=== PATIENT | female | born 1995 | race Caucasian/White ===

== ENCOUNTER → 2019-09-20 | Outpatient (CLI) | payer OTHER | LOC: OD 16:56 | PROVIDERS: ATTEND Obstetrics & Gynecology | DX: O20.0 Threatened abortion (principal); Z3A.00 Weeks of gestation of pregnancy not specified | CPT/HCPCS: 36415; 86900; 86901 ==

== ENCOUNTER 2020-04-11 13:35 | Outpatient (CLI) | payer OTHER ==
--- NOTE | 2020-04-11 14:40 | Non Stress Test Report ---
Non Stress Test Datetime Report Generated by CPN: 04/11/2020 14:40 DEMOGRAPHIC EGA NST: 35.3 VITAL SIGNS Temperature - NST: 97.3 Pulse - NST: 104 RESP - NST: 18 NBPSYS NST: 123 NBPDIA NST: 71 MONITORING Monitor Explained: Monitor Explained; Test Explained; Patient Verbalized Understanding Time on Monitor: 04/11/2020 13:49 Time off Monitor: 04/11/2020 14:31 NST Duration: 42 NST INTERVENTIONS NST Interventions: PO Hydration; Reposition Patient Physician Notified NST: Dr Yang BABY A: [id number] BABY A Movement : Present Contraction Frequency : 6-10 FHR Baseline : 150 Accelerations : 15X15 Decelerations : None Variability : Moderate 6-25bpm NST Review: Meets Criteria for Reactive NST NST Review and Verified By : Sherita PAULA/ Cass Tapia RN NST Results: Reactive NST REPORT Report Trigger: Send Report
== END 2020-04-11 14:36 | disposition home or self-care (01) ==
LOC: LC 13:35
PROVIDERS: ATTEND Obstetrics & Gynecology Gynecology
DX: O36.8130 Decreased fetal movements, third trimester, not applicable or unspecified (principal); Z3A.35 35 weeks gestation of pregnancy

== ENCOUNTER 2020-04-30 22:59 | Outpatient (CLI) | payer OTHER ==
[2020-04-30 23:39] LABS: APPEARANCE,URINE CLOUDY; BILIRUBIN,URINE NEGATIVE (NEGATIVE); COLOR,URINE YELLOW; GLUCOSE, URINE NEGATIVE (NEGATIVE); KETONES,URINE NEGATIVE (NEGATIVE); LEUKOCYTE ESTERASE,URINE LARGE (NEGATIVE); NITRITE,URINE NEGATIVE (NEGATIVE); PROTEIN,URINE NEGATIVE (NEGATIVE); URINE SPECIFIC GRAVITY 1.004; UROBILINOGEN,URINE NEGATIVE mg/dL (<2.0)
[2020-04-30 23:56] LABS: URINE AMPHETAMINES SCREEN NEGATIVE; URINE BARBITURATES SCREEN NEGATIVE; URINE BENZODIAZEPINES SCREEN NEGATIVE; URINE COCAINE SCREEN NEGATIVE; URINE MARIJUANA (THC) SCREEN NEGATIVE; URINE METHADONE SCREEN NEGATIVE; URINE PHENCYCLIDINE SCREEN NEGATIVE
== END 2020-05-01 00:08 | disposition home or self-care (01) ==
LOC: LC 22:59
PROVIDERS: ATTEND Obstetrics & Gynecology
DX: O47.1 False labor at or after 37 completed weeks of gestation (principal); O24.419 Gestational diabetes mellitus in pregnancy, unspecified control; Z3A.38 38 weeks gestation of pregnancy; Z02.83 Encounter for blood-alcohol and blood-drug test
CPT/HCPCS: 80307; 81005; 84112

== ENCOUNTER 2020-05-09 05:02 | Inpatient (IN) | payer OTHER ==
[2020-05-04 09:05] LABS: ABSOLUTE EOSINOPHILS # (AUTO) 0.1 10^3/uL (0.0-0.6); ABSOLUTE MONOCYTES (AUTO) 0.8 10^3/uL (0.1-1.4); ABSOLUTE NEUT (AUTO) 5.4 10^3/uL (1.7-8.2); BASOPHILS % (AUTO) 0.1 % (0-2); EOSINOPHILS % (AUTO) 1.6 % (0-6); HEMATOCRIT 34.4 % (36.0-47.0); HEMOGLOBIN 11.8 g/dL (12.0-15.5); MEAN CORPUSCULAR HGB CONC 34.2 g/dL (32.0-36.0); MEAN CORPUSCULAR VOLUME 82 fl (80-97); MONOCYTES % (AUTO) 8.4 % (3-13); PLATELET COUNT 205 10^3/uL (150-450); RED BLOOD COUNT 4.21 10^6/uL (3.72-5.28); RED CELL DISTRIBUTION WIDTH 14.8 % (11.5-14.0); SEGMENTED NEUTROPHILS % (AUTO) 57.9 % (42-78); TOTAL CELLS COUNTED % (AUTO) 100 %; WHITE BLOOD COUNT 9.3 10^3/uL (4.0-10.5)
[2020-05-04 09:18] LABS: APPEARANCE,URINE SLIGHTLY-CLOUDY; BILIRUBIN,URINE NEGATIVE (NEGATIVE); COLOR,URINE YELLOW; GLUCOSE, URINE NEGATIVE (NEGATIVE); KETONES,URINE NEGATIVE (NEGATIVE); LEUKOCYTE ESTERASE,URINE SMALL (NEGATIVE); NITRITE,URINE NEGATIVE (NEGATIVE); PROTEIN,URINE NEGATIVE (NEGATIVE); URINE SPECIFIC GRAVITY 1.024
[2020-05-04 09:31] LABS: URINE AMPHETAMINES SCREEN NEGATIVE; URINE BARBITURATES SCREEN NEGATIVE; URINE BENZODIAZEPINES SCREEN NEGATIVE; URINE COCAINE SCREEN NEGATIVE; URINE MARIJUANA (THC) SCREEN NEGATIVE; URINE METHADONE SCREEN NEGATIVE; URINE PHENCYCLIDINE SCREEN NEGATIVE
[~2020-05-09 05:02] MED LIST: CEFAZOLIN 2 GM/D5W RTU 2 GM/50 ML RTUPB IV PRN; RINGERS SOLUTION,LACTATED 1,000 ML IV PRN
[2020-05-09] MEDS ORDERED: OXYTOCIN 10 UNIT/ML VIAL ONE (07:10)
[2020-05-09] MEDS ORDERED: GLYCOPYRROLATE INJ 0.4 MG/2 ML VIAL ONE (07:10)
[2020-05-09] MEDS ORDERED: KETOROLAC TROMETHAMINE INJ/PF 30 MG/1 ML SDV ONE (07:10)
[2020-05-09] MEDS ORDERED: PHENYLEPHRINE HCL INJ/PF 10 MG/1 ML SDV ONE (07:10)
[2020-05-09] MEDS ORDERED: ACETAMINOPHEN 1,000 MG/100 ML RTUPB IV ONE (07:11)
[2020-05-09] MEDS ORDERED: FENTANYL CITRATE INJ/PF 100 MCG/2 ML AMPUL ONE (07:11)
[2020-05-09] MEDS ORDERED: OXYTOCIN/0.9 % SODIUM CHLORIDE 30 UNIT/500 ML RTUINJ ONE (07:11)
[2020-05-09] MEDS ORDERED: ROPIVACAINE HCL 0.5% INJ/PF (5 MG/1 ML) 30 ML SDV ONE (07:11)
[2020-05-09] MEDS ORDERED: MIDAZOLAM 2 MG/2 ML INJ ONE (07:11)
[2020-05-09] MEDS ORDERED: ONDANSETRON HCL INJ/PF 4 MG/2 ML SDV ONE (07:12)
[2020-05-09] MEDS ORDERED: EPHEDRINE SULFATE INJ 50 MG/1 ML AMPULE ONE (07:31)
[2020-05-09] MEDS ORDERED: CEFAZOLIN 2 GM/D5W RTU 2 GM/50 ML RTUPB IV ONE (07:31)
--- NOTE | 2020-05-09 08:10 | Non Stress Test Report ---
Non Stress Test Datetime Report Generated by CPN: 05/09/2020 08:10 DEMOGRAPHIC EGA NST: 38.1 INDICATION Indication for Study (NST) Other: lc/srom URINE RESULTS Urine Blood - NST: Negative MONITORING Monitor Explained: Monitor Explained; Test Explained; Patient Verbalized Understanding Time on Monitor: 04/30/2020 23:09 Time off Monitor: 05/01/2020 00:04 NST Duration: 55 NST INTERVENTIONS NST Interventions: Reposition Patient NST Interventions: None Physician Notified NST: Dr Siegel BABY A: [id number] BABY A Movement : Present Movement : Present Contraction Frequency : irregular Contraction Frequency : x2 FHR Baseline : 140 FHR Baseline : 140 Accelerations : 15X15 Accelerations : 15X15 Decelerations : None Decelerations : None Variability : Moderate 6-25bpm Variability : Moderate 6-25bpm NST Review: Meets Criteria for Reactive NST NST Review: Meets Criteria for Reactive NST NST Review and Verified By : Linda Juarez RN NST Results: Reactive NST Results: Reactive NST REPORT Report Trigger: Send Report
[2020-05-09] MEDS ORDERED: FENTANYL CITRATE INJ/PF 100 MCG/2 ML AMPUL IV PRN ×3 (08:35)
[2020-05-09] MEDS ORDERED: PROMETHAZINE HCL INJ 25 MG/1 ML VIAL IV PRN ×3 (08:35→08:55)
[2020-05-09] MEDS ORDERED: OXYCODONE-ACETAMINOPHEN 5-325 MG TABLET PO PRN ×3 (08:35→08:55)
[2020-05-09] MEDS ORDERED: MEPERIDINE HCL/PF INJ 25 MG/1 ML DISP.SYRIN IV PRN (08:35)
[2020-05-09] MEDS ORDERED: DIPHENHYDRAMINE HCL 50 MG/ML VIAL IV PRN (08:35)
[2020-05-09] MEDS ORDERED: DIPH/PERTUSS(ACELL)/TETANUS VAC/PF 0.5 ML SYR (>=10YO) IM PRN (08:55)
[2020-05-09] MEDS ORDERED: OXYTOCIN/0.9 % SODIUM CHLORIDE 30 UNIT/500 ML RTUINJ IV PRN (08:55)
[2020-05-09] MEDS ORDERED: ACETAMINOPHEN 325 MG TABLET PO PRN (08:55)
[2020-05-09] MEDS ORDERED: MORPHINE SULFATE 10 MG/ML INJ IV PRN (08:55)
[2020-05-09] MEDS ORDERED: SIMETHICONE 80 MG TAB.CHEW PO PRN (08:55)
[2020-05-09] MEDS ORDERED: ACETAMINOPHEN 1,000 MG/100 ML RTUPB IV PRN (08:55)
[2020-05-09] MEDS ORDERED: MEASLES,MUMPS&RUBELLA VACC/PF 0.5 ML VIAL SUBCUT PRN (08:55)
[2020-05-09] MEDS ORDERED: RINGERS SOLUTION,LACTATED 1,000 ML IV PRN (08:55)
--- NOTE | 2020-05-09 09:06 | Operative Report ---
Operative Report DATE OF SURGERY: 05/09/20 PREOPERATIVE DIAGNOSIS: IUP at 39 weeks, previous desires repeat POSTOPERATIVE DIAGNOSIS: Same OPERATION: Repeat low transverse hysterotomy section SURGEON: NITA GREEN ANESTHESIA: Spinal TISSUE REMOVED OR ALTERED: None COMPLICATIONS: None ESTIMATED BLOOD LOSS: 750 cc INTRAOPERATIVE FINDINGS: Female infant cephalic presentation Apgars of 8 and 9 PROCEDURE: PROCEDURE IN DETAIL: The patient was taken to the operating room, prepared and draped in a normal sterile fashion in a supine position with a leftward tilt. A transverse skin incision was made with a scalpel and carried through to the underlying layer of fascia with the same scalpel. The fascia was excised in the midline and extended laterally with Vin. The fascia was then dissected from the rectus muscle sharply with Vin and the rectus muscle was divided and the peritoneal cavity was entered sharply with the same Metzenbaum. With good visualization of the bladder and the uterus the bladder blade was inserted. The hysterotomy was nicked with a scalpel and extended laterally with surgeon finger fraction. The was then delivered atraumatically. The nose and mouth were suctioned with a suction bulb, the cord was clamped and cut and handed off to awaiting pediatricians. Cord blood was collected. The placenta was removed manually. The uterus was exteriorized and cleared of clots and debris. The hysterotomy was closed with 0 Monocryl in a running, locked fashion. A second layer of the same suture was used to imbricate to ensure hemostasis. The uterus was returned to the abdomen and peritoneal cavity was cleared of clots and debris. The rectus muscle and peritoneum were repaired with mattress stitch of 2-0 Chromic. The fascia was closed with 0-Vicryl. The subcutaneous layer was closed with plain catgut and the skin was closed with 4-0 Vicryl. The patient tolerated the procedure well. Sponge, lap, and needle counts correct x2 and the patient was taken to recovery in stable condition.
[2020-05-09] MEDS ORDERED: MEPERIDINE HCL/PF INJ 25 MG/1 ML DISP.SYRIN ONE (09:50)
[2020-05-09] MEDS ORDERED: MORPHINE SULFATE 10 MG/ML INJ ONE (09:50)
[2020-05-09] MEDS: MORPHINE SULFATE 10 MG/ML INJ IV PRN ×2 (10:01→10:40)
--- NOTE | 2020-05-09 10:46 | Delivery Summary ---
Del Sum A-C Datetime Report Generated by CPN: 05/09/2020 10:45 DELIVERY PERSONNEL DELIVERY PERSONNEL: [id number] Delivery Doctor:: Hyun Hunt MD [employer] OPERATOR:: Sergo Normile, [employer] OPERATOR Bag Filler:: Altagracia Tapia RN Nursery Nurse:: Inocencia Nunez RN Pcts/SKIVER HEEL TAP: Cheryl Nunez CST Pcts/SKIVER HEEL TAP: Nohemi Mascorro, INDUSTRIAL RECRUITER MATERNAL INFORMATION Delivery Anesthesia: Spinal Medications After Delivery: Pitocin 30 Units in 500ml NS/D5W; Pitocin Drip 20 Units/1000ml NSS Delivery QBL: 628 Maternal Complications: None LABOR SUMMARY EDC: 05/13/2020 00:00 No. Babies in Womb: 1 Attempted: No Labor Anesthesia: None LABOR INFORMATION Reason for Induction: Not Applicable Oxytocin: N/A Group B Beta Strep: positive Antibiotics # of Doses: 1 Antibiotics Time of Last Dose: 05/09/2020 07:50 Name of Antibiotic Given: Ancef 2g Steroids Given: None Reason Steroids Not Administered: Not Applicable MEMBRANES Membranes Rupture Method: Artificial Rupture of Membranes: 05/09/2020 08:11 Length of Rupture (hr): 0.05 Amniotic Fluid Color: Clear Amniotic Fluid Amount: Large Amniotic Fluid Odor: Normal STAGES OF LABOR Stage 3 hr: 0 Stage 3 min: 2 VAGINAL DELIVERY Episiotomy: None Laceration #1: None Laceration Extension #1: N/A Laceration Repair: Not Applicable Sharps Count Correct: N/A CSECTION DELIVERY Primary Indication: Repeat Elective CSection Urgency: Scheduled CSection Incidence: Repeat Labor: No Labor Elective: Elective CSection Incision: Lower Uterine Transverse BABY A INFORMATION Infant Delivery Date/Time: 05/09/2020 08:14 Method of Delivery: Nurse Controlled Delivery: No Born in Route : No : N/A Forceps: N/A Vacuum Extraction: Failed Shoulder Dystocia : No (Annotations: Data stored by [facility] on behalf of user) ASSISTED DELIVERY BABY A Catheter Prior to Procedure: Yes Position Vacuum/Forcep Apply: Right Occipital Transverse Vacuum Number of Pulls: 2 Vacuum Number of PopOffs: 2 Reduce Pressure btwn Ctx: No Vacuum/Forceps Comment: vacuum suction not well applied and not effectively working due to hair. Vacuum not used for delivery. PRESENTATION/POSITION BABY A Presentation: Cephalic Cephalic Presentation: Vertex Vertex Position: Right Occipital Transverse Breech Presentation: N/A PLACENTA INFORMATION BABY A Placenta Delivery Time : 05/09/2020 08:16 Placenta Method of Delivery: Manual Removal Placenta Status: Delivered SCORES BABY A Heart Rate 1 min: >100 bpm Resp Effort 1 min: Good Cry Reflex Irritability 1 min: Cough or Sneeze or Pulls Away Muscle Tone 1 min: Active Motion Color 1 min: Body Chauvin, Extremities Blue Resuscitation Effort 1 min: Tactile Stimulation SCORE 1 MIN: 9 Heart Rate 5 min: >100 bpm Resp Effort 5 min: Good Cry Reflex Irritability 5 min: Cough or Sneeze or Pulls Away Muscle Tone 5 min: Active Motion Color 5 min: Body Ch[place]vin, Extremities Blue Resuscitation Effort 5 min: Tactile Stimulation SCORE 5 MIN: 9 INFANT INFORMATION BABY A Gestational Age at Delivery: 39.3 Gestational Status: Full Term- 39- 40.6 Weeks Outcome : Liveborn Condition : Stable Sex: Female WEIGHT/LENGTH BABY A Birthweight (gm): 3450 Infant Weight (lb): 7 Weight (oz): 10 Infant Length (in): 20.00 Length (cm): 50.80 CORD INFORMATION BABY A No. Cord Vessels: 3 Nuchal Cord : N/A Cord Blood Taken: Yes-For Storage (Mom's Blood type +) Suction: Mouth; Nose ASSESSMENT BABY A Skin to Skin: Yes BABY B INFORMATION : N/A
--- NOTE | 2020-05-09 10:46 | Birth Certificate Data ---
Cert Data Datetime Report Generated by CPN: 05/09/2020 10:45 CERTIFICATE DATA Delivery Provider: Hyun Hunt MD (05/09/2020 09:11:Altagracia Tapia RN) 48a. Number of Prev Live Births: 1 (04/11/2020 13:49:Altagracia Tapia RN) 48b. Now Livin (04/11/2020 13:49:Altagracia Tapia RN) 48c. Live Births Now : 0 (04/11/2020 13:49:QS system process) 48d. Date of Last Live : 07/30/2016 00:00 (04/11/2020 13:49:Altagracia Tapia RN) 48e. Losses: 1 (04/11/2020 13:49:Altagracia Tapia RN) 48f. Date of Last Preg Loss: 08/07/2016 00:00 (04/11/2020 13:49:Altagracia Tapia RN) RISK FACTORS IN THIS 49a. Diabetes: Yes (04/11/2020 13:49:Altagracia Tapia RN) Type of Diabetes: Gestational Diabetes (04/11/2020 13:49:Altagracia Tapia RN) 49b. Hypertension: No (04/11/2020 13:49:Altagracia Tapia RN) 49c. Previous Births: 0 (04/11/2020 13:49:Altagracia Tapia RN) 49d. Stillborns: No (04/11/2020 13:49:Altagracia Tapia RN) 49d. IUGR: No (04/11/2020 13:49:Altagracia Tapia RN) 49e. Infertility Treatment: No (04/11/2020 13:49:Altagracia Tapia RN) 49f. Previous Cesareans: 1 (04/11/2020 13:49:Altagracia Tapia RN) Mother's Height 50b. Height Inches: 59 (05/09/2020 05:32:QS system process) Mother's Weight 51b. Weight at Delivery (lbs): 172 (05/09/2020 05:32:QS system process) 52. Dt Last Normal Menses Began: 06/02/2019 00:00 (04/11/2020 13:49:Altagracia Tapia RN) Infections Present/Treated 53a. Gonorrhea: No (04/11/2020 13:49:Altagracia Tapia RN) Results this Hospital Visit : Negative (04/11/2020 13:49:Altagracia Tapia RN) 53b. Syphilis: No (04/11/2020 13:49:Altagracia Tapia RN) 53c. Chlamydia: No (04/11/2020 13:49:Altagracia Tapia RN) Results this Hospital Visit: Negative (04/11/2020 13:49:Altagracia Tapia RN) 53d. Hepatitis B: No (04/11/2020 13:49:Altagracia Tapia RN) Results this Hospital Visit: Negative (04/11/2020 13:49:Altagracia Tapia RN) 53e. Hepatitis C: Negative (04/11/2020 13:49:Altagracia Tapia RN) 53h. Mother Tested for HBsAG: Yes (04/11/2020 13:49:Altagracia Tapia RN) 53i. Date Tested: 09/27/2019 00:00 (04/11/2020 13:49:Altagracia Tapia RN) 53j. Test Result: Negative (04/11/2020 13:49:Altagracia Tapia RN) Obstetric Procedures 54a, b, c. Obstetric Procedures: Ultrasound; NST; BPP (04/11/2020 13:49:Altagracia Tapia RN) Cigarette Smoking Cigarette Smoking: Smoker, Current Status Unknown. [id number] (04/11/2020 13:49:Yolette Mendez RN) 55a. 3 Months Before Preg - Ci (04/11/2020 13:49:Altagracia Tapia RN) 55a. Packs: 0 (04/11/2020 13:49:Altagracia Tapia RN) 55b. 1st Trimester of Preg- Ci (04/11/2020 13:49:Altagracia Tapia RN) 55b. Packs: 0 (04/11/2020 13:49:Altagracia Tapia RN) 55c. 2nd Trimester of Preg- Ci (04/11/2020 13:49:Altagracia Tapia RN) 55c. Packs: 0 (04/11/2020 13:49:Altagracia Tapia RN) 55d. 3rd Trimester of Preg- Ci (04/11/2020 13:49:Altagracia Tapia RN) 55d. Packs: 0 (04/11/2020 13:49:Altagracia Tapia RN) Onset of Labor 56a. PROM >12 Hrs: 0.05 (04/11/2020 13:49:QS system process) 57a. Induction of Labor: N/A (04/11/2020 13:49:Altagracia Tapia RN) 57c. Non-Vertex Presentation A: Vertex (04/11/2020 13:49:Altagracia Tapia RN) 57d. Steroids - Lung Mat: None (04/11/2020 13:49:Altagracia Tapia RN) 57d. Steroids - Lung Mat: Not Applicable (04/11/2020 13:49:Altagracia Tapia RN) 57e. Antibiotics During Labor: 05/09/2020 07:50 (04/11/2020 13:49:Altagracia Tapia RN) 57f. Mat [place] or Temp >100.4: 97.2 (04/11/2020 13:49:Altagracia Tapia RN) 57g. Moderate/Heavy Meconium: Clear (04/11/2020 13:49:Altagracia Tapia RN) 57h. Intolerance of Labor: Repeat Elective (04/11/2020 13:49:Altagracia Tapia RN) 57i. Epidural/Spinal Anesthesia: None (04/11/2020 13:49:Altagracia Tapia RN) Method of Delivery 58a. Forceps - Unsuccessful A: N/A (04/11/2020 13:49:Altagracia Tapia RN) 58b. Vacuum - Unsuccessful A: Failed (04/11/2020 13:49:Altagracia Tapia RN) 58c. Presentation at 58c. Presentation at - A : Vertex (04/11/2020 13:49:Altagracia Tapia RN) 58c. Presentation at - A : N/A (04/11/2020 13:49:Altagracia Tapia RN) 58c. Presentation at - A : Cephalic (04/11/2020 13:49:Altagracia Tapia RN) Final Route and Method of Del 58d. Baby A Route/Delivery: (04/11/2020 13:49:Altagracia Sales, RN) 58e. Trial of Labor Attempted: No (04/11/2020 13:49:Altagracia Sales, RN) 58e. Trial of Labor Attempted A: N/A (04/11/2020 13:49:Altagracia Sales, RN) 58e. Trial of Labor Attempted B: N/A (04/11/2020 13:49:Altagracia Sales, RN) Maternal Morbidity 59b. 3rd or 4th Degree Lacs: None (04/11/2020 13:49:Altagracia Sales, RN) Birthweight Baby A: 3450 (04/11/2020 13:49:Altagracia Sales, RN) 60a. Pounds : 7 (04/11/2020 13:49:QS system process) 60b. Ounces: 10 (04/11/2020 13:49:QS system process) 61. GA at Delivery Baby A: 39.3 (04/11/2020 13:49:Altagracia Sales, RN) : Full Term- 39- 40.6 Weeks (04/11/2020 13:49:QS system process) 62a. 5 Minute Baby A: 9 (04/11/2020 13:49:QS system process)
[2020-05-09] MEDS: PRENATAL VITAMIN W DHA CAPSULE PO SCH (12:27)
[2020-05-09] MEDS: OXYCODONE-ACETAMINOPHEN 5-325 MG TABLET PO PRN ×2 (12:27→21:33)
[2020-05-09] MEDS: DOCUSATE SODIUM 100 MG CAPSULE PO SCH ×2 (12:27→17:06)
[2020-05-09] MEDS: KETOROLAC TROMETHAMINE INJ/PF 30 MG/1 ML SDV IV SCH ×2 (14:16→21:33)
[2020-05-09] MEDS ORDERED: RINGERS SOLUTION,LACTATED 1,000 ML IV ONE (20:00)
[2020-05-10] MEDS: OXYCODONE-ACETAMINOPHEN 5-325 MG TABLET PO PRN (03:51)
[2020-05-10] MEDS: IBUPROFEN 800 MG TABLET PO SCH ×4 (05:30→23:06)
[2020-05-10 07:20] LABS: HEMATOCRIT 30.7 % (36.0-47.0); HEMOGLOBIN 10.4 g/dL (12.0-15.5); MEAN CORPUSCULAR HEMOGLOBIN 27.9 pg (27.0-33.4); MEAN CORPUSCULAR VOLUME 82 fl (80-97); PLATELET COUNT 176 10^3/uL (150-450); RED BLOOD COUNT 3.74 10^6/uL (3.72-5.28); RED CELL DISTRIBUTION WIDTH 15.1 % (11.5-14.0); WHITE BLOOD COUNT 9.6 10^3/uL (4.0-10.5)
[2020-05-10] MEDS: PRENATAL VITAMIN W DHA CAPSULE PO SCH (09:08)
[2020-05-10] MEDS: DOCUSATE SODIUM 100 MG CAPSULE PO SCH ×2 (09:08→18:05)
--- NOTE | 2020-05-10 11:55 | PDOC PROGRESS REPORT ---
Subjective-OB Progress Note for:: 05/10/20 Subjective: 24yo G3 now P2 s/p repeat ppd1. Ambulating, voiding, passing gas without difficulty. Reports pain well controlled with medication, no other concerns at this time. Physical Exam (OB) Vital Signs: Temp Pulse Resp BP Pulse Ox 97.7 F 91 18 122/67 100 05/10/20 11:35 05/10/20 11:35 05/10/20 11:35 05/10/20 11:35 05/10/20 11:35 Intake & Output 05/09/20 05/10/20 05/11/20 06:59 06:59 06:59 Intake Total 680 Output Total 1800 Balance -1120 - General General Appearance: Appears well In distress: None - PIH/Pre-Eclampsia Clonus: Negative Headache: Absent Epigastric Pain: No Visual Changes: No - Dressing Removed: Yes - blistering of the skin from silk tape noted Incision: Well Approximated Closure Type: Sutures - Maternal Morbidity 59. Maternal Morbidity (serious complications experinced by the mother associated with labor and delivery: None of the above - Lochia Lochia Amount: Small 10-25 ml Lochia Color: Rubra/Red - Abdomen Description: Tender - on blistering sites, Soft, Round Hernia Present: No Fundal Description: Firm, Midline Fundal Height: u/u - u/2 - Respiratory Respiratory Status: No respiratory distress Chest Status: Nontender - Extremities Upper extremity: Normal inspection Lower extremities: Normal inspection - Neurological Cognition: Normal Orientation: AAOx4 - Psychological Associated symptoms: Normal affect, Normal mood Objective-Diagnostic Laboratory: 05/10/20 06:40 05/10/20 06:40 WBC 9.6 RBC 3.74 Hgb 10.4 L Hct 30.7 L MCV 82 MCH 27.9 MCHC 34.0 RDW 15.1 H Plt Count 176 Assessment and Plan(PN) - Assessment and Plan (1) Acute blood loss anemia Is this a current diagnosis for this admission?: Yes Plan: increase dietary iron and FeSO4 supplementation (2) S/P repeat low transverse Is this a current diagnosis for this admission?: Yes Plan: routine pp care - Time Spent with Patient Time with patient: 15-25 minutes Medications reviewed and adjusted accordingly: Yes - Disposition Anticipated Discharge Disposition: Home, Self Care Anticipated Discharge Timeframe: within 24 hours
[2020-05-10] MEDS ORDERED: IBUPROFEN 800 MG TABLET PO SCH (12:00)
[2020-05-11] MEDS: IBUPROFEN 800 MG TABLET PO SCH (06:23)
[2020-05-11] MEDS: DOCUSATE SODIUM 100 MG CAPSULE PO SCH (09:38)
[2020-05-11] MEDS: PRENATAL VITAMIN W DHA CAPSULE PO SCH (09:38)
--- NOTE | 2020-05-11 11:44 | PDOC DISCHARGE SUMMARY ---
Impression - Admit/DC Date/PCP Admission Date/Primary Care Provider: 05/09/20 05:02 NITA GREEN MD Discharge Date: 05/11/20 - Discharge Diagnosis (1) S/P repeat low transverse Is this a current diagnosis for this admission?: Yes - Additional Information Discharge Diet: Regular Discharge Activity: Balance Activity w/Rest, No Lifting Over 10 Pounds, No Lifting/Push/Pulling, Pelvic Rest, No tub bath Referrals: NITA GREEN MD [Primary Care Provider] - Prescriptions: Ibuprofen [Motrin 800 mg Tablet] 800 mg PO Q8HP PRN #60 tablet PRN Reason: Oxycodone HCl/Acetaminophen [Percocet 5-325 mg Tablet] 1 tab PO Q4HP PRN #20 tablet PRN Reason: Home Medications: Pnv No.95/Ferrous Fum/Folic AC [ Caplet] 1 each PO DAILY 04/11/20 Ibuprofen [Motrin 800 mg Tablet] 800 mg PO Q8HP PRN #60 tablet 05/11/20 Oxycodone HCl/Acetaminophen [Percocet 5-325 mg Tablet] 1 tab PO Q4HP PRN #20 tablet 05/11/20 Hospital Course 59. Maternal Morbidity (serious complications experinced by the mother associated with labor and delivery: None of the above Results Laboratory Results: WBC 9.6 10^3/uL (4.0-10.5) 05/10/20 06:40 RBC 3.74 10^6/uL (3.72-5.28) 05/10/20 06:40 Hgb 10.4 g/dL (12.0-15.5) L 05/10/20 06:40 Hct 30.7 % (36.0-47.0) L 05/10/20 06:40 MCV 82 fl (80-97) 05/10/20 06:40 MCH 27.9 pg (27.0-33.4) 05/10/20 06:40 MCHC 34.0 g/dL (32.0-36.0) 05/10/20 06:40 RDW 15.1 % (11.5-14.0) H 05/10/20 06:40 Plt Count 176 10^3/uL (150-450) 05/10/20 06:40 Lymph % (Auto) 32.0 % (13-45) 05/04/20 08:30 [place] % (Auto) 8.4 % (3-13) 05/04/20 08:30 Eos % (Auto) 1.6 % (0-6) 05/04/20 08:30 Baso % (Auto) 0.1 % (0-2) 05/04/20 08:30 Absolute Neuts (auto) 5.4 10^3/uL (1.7-8.2) 05/04/20 08:30 Absolute Lymphs (auto) 3.0 10^3/uL (0.5-4.7) 05/04/20 08:30 Absolute Monos (auto) 0.8 10^3/uL (0.1-1.4) 05/04/20 08:30 Absolute Eos (auto) 0.1 10^3/uL (0.0-0.6) 05/04/20 08:30 Absolute Basos (auto) 0.0 10^3/uL (0.0-0.2) 05/04/20 08:30 Seg Neutrophils % 57.9 % (42-78) 05/04/20 08:30 POC Glucose 91 mg/dL (70-110) 05/09/20 06:20 Urine Color YELLOW 05/04/20 08:25 Urine Appearance SLIGHTLY-CLOUDY 05/04/20 08:25 Urine pH 5.0 (5.0-9.0) 05/04/20 08:25 Ur Specific [place] 1.024 05/04/20 08:25 Urine Protein NEGATIVE mg/dL (NEGATIVE) 05/04/20 08:25 Urine Glucose (UA) NEGATIVE mg/dL (NEGATIVE) 05/04/20 08:25 Urine Ketones NEGATIVE mg/dL (NEGATIVE) 05/04/20 08:25 Urine Blood NEGATIVE (NEGATIVE) 05/04/20 08:25 Urine Nitrite NEGATIVE (NEGATIVE) 05/04/20 08:25 Urine Bilirubin NEGATIVE (NEGATIVE) 05/04/20 08:25 Urine Urobilinogen 2.0 mg/dL (<2.0) H 05/04/20 08:25 Ur Leukocyte Esterase SMALL (NEGATIVE) H 05/04/20 08:25 Urine WBC (Auto) 7 /HPF 05/04/20 08:25 Urine RBC (Auto) 1 /HPF 05/04/20 08:25 Squamous Epi Cells Auto 7 /HPF 05/04/20 08:25 Urine Mucus (Auto) RARE /LPF 05/04/20 08:25 Urine Ascorbic Acid NEGATIVE (NEGATIVE) 05/04/20 08:25 Urine Opiates Screen NEGATIVE 05/04/20 08:25 Urine Methadone Screen NEGATIVE 05/04/20 08:25 Ur Barbiturates Screen NEGATIVE 05/04/20 08:25 Ur Phencyclidine Scrn NEGATIVE 05/04/20 08:25 Ur Amphetamines Screen NEGATIVE 05/04/20 08:25 U Benzodiazepines Scrn NEGATIVE 05/04/20 08:25 Urine Cocaine Screen NEGATIVE 05/04/20 08:25 U Marijuana (THC) Screen NEGATIVE 05/04/20 08:25 COVID-19 Source See comment 05/04/20 08:35 COVID-19 (ROBBIE) Not Detected (Not Detect) 05/04/20 08:35 Blood Type B POSITIVE 05/08/20 13:11 Antibody Screen NEGATIVE 05/08/20 13:11 Plan Plan of Treatment: follow up in one week at [facility] for incision check
[2020-05-11 12:04] VITALS: BP 114/74
== END 2020-05-11 13:17 | disposition home or self-care (01) | DRG 787 ==
LOC: 2S 05:02
PROVIDERS: ADMIT Obstetrics & Gynecology; ATTEND Obstetrics & Gynecology
PROC: 10D00Z1 Extraction of Products of Conception, Low, Open Approach (ICD-10-PCS; principal; 2020-05-09)
DX: O34.211 Maternal care for low transverse scar from previous cesarean delivery (principal); D62 Acute posthemorrhagic anemia; O24.429 Gestational diabetes mellitus in childbirth, unspecified control; N85.8 Other specified noninflammatory disorders of uterus; O99.02 Anemia complicating childbirth; Z37.0 Single live birth; Z3A.39 39 weeks gestation of pregnancy
CPT/HCPCS: 1961; 36415; 59025; 80307; 81001; 82962; 85025; 85027; 86850; 86900; 86901; 87635; 94760; 94799; C9803; J0131; J0690; J1885; J2175; J2250; J2270; J2370; J2405; J2590; J2795; J3010; J3490; J7120